=== PATIENT | female | born 1955 | race Caucasian/White ===

== ENCOUNTER → 2022-05-22 00:31 | Outpatient (CLI) | payer MEDICARE, OTHER, SELFPAY ==
--- NOTE | 2022-05-22 | DI.MRI_ITS ---
Exam(s) MR UPPER JOINT LT WO EXAM: MR UPPER JOINT LT WO CLINICAL HISTORY: TEAR OF ROTATOR CUFF, M75.100, LT SHOULDER PAIN TECHNIQUE: Multiplanar multisequence MRI of the shoulder was performed. COMPARISON: None FINDINGS: MARROW:There is no evidence of fracture, Hill-Sachs deformity, nor ominous osseous lesions. Small deg enerative subarticular cysts noted in the posterolateral aspect the humeral head. ROTATOR CUFF MECHANISM: AC JOINT/ACROMIUM: Are significant degenerative changes in the AC joint.. This is resulting in some impingement upon the supraspinatus. There is no evidence of os acromiale. Supraspinatus: There is a full-thickness tear in the anterior aspect of the supraspinatus. There is fluid extension into the subacromial-subdeltoid bursa. There is no prominent retraction of the muscu lotendinous junction. No prominent muscle atrophy. Infraspinatus: Intact. No evidence of tear nor muscle atrophy. Teres Minor: Intact. No evidence of tear nor muscle atrophy. Subscapularis/anterior cuff: Intact. No abnormal signal at the level of the multipennate insertional fibers. No significant tear nor atrophy. BICEPS TENDON: Normally position in the intertubercular groove. No evidence of tear. No tenosynovitis. LABRUM: There is some deficiency in size of superior labrum posterior to the biceps insertion site, c onsistent with an element of fraying of the superior labrum. Somewhat similar findings are seen at t he surface of the posterior labrum but there is no fluid signal interposed between the posterior labr um and the osseous glenoid. Anterior labrum also exhibits some surface fraying. Inferior labrum tran ears intact. The inferior glenohumeral ligament appears somewhat indistinct. There is some synovial thickening in the inferior recess. GLENOHUMERAL JOINT: Small joint effusion. This extends into the medial recess. Degenerative subarti cular cysts noted in the posterolateral aspect of humeral head. There are none in the osseous glenoi d. No prominent osteophytes. No obvious loose intra-articular bodies. There is a tiny osteophyte o n the inferior articular surface of the humeral head. QUADRILATERAL SPACE: No evidence of mass in the region of the axillary nerve and dorsal circumflex hu meral vessels. Visualized triceps muscle at this level appears unremarkable. IMPRESSION: 1. There is a full-thickness tear of the supraspinatus tendon at its anterior aspect just above the g reater tuberosity. There is fluid in the overlying subacromial-subdeltoid bursa. There is no retrac tion musculotendinous junction nor prominent muscle atrophy. Other muscles of the rotator cuff mecha nism are intact. 2. Long head biceps tendon is intact. However, there appears to be some surface fraying of the labru m as described above. There is, however, no distinct fluid interposition between the labrum and the osseous glenoid. 3. Mild degenerative changes in the glenohumeral joint including tiny osteophyte on the inferior leroy cular surface of the humeral head and degenerative subarticular cysts in the posterolateral aspect of the humeral head. DATA REPOSITORY:
== END ==
PROVIDERS: Visit Provider Orthopaedic Surgery
DX: M75.122 Complete rotator cuff tear or rupture of left shoulder, not specified as traumatic (principal); M19.012 Primary osteoarthritis, left shoulder; M25.712 Osteophyte, left shoulder; M85.612 Other cyst of bone, left shoulder
CPT/HCPCS: 73221